=== PATIENT | female | born 1990 | race Caucasian/White ===

== ENCOUNTER 2021-10-28 00:52 | Emergency (ER) | payer OTHER ==
[2021-10-28] MEDS ORDERED: DIFLUCAN150 MG PO (02:20)
== END 2021-10-28 02:38 | disposition home or self-care (01) ==
LOC: FER 00:52
DX: B37.3 Candidiasis of vulva and vagina (principal); E11.9 Type 2 diabetes mellitus without complications; Z91.013 Allergy to seafood; Z91.19 Patient's noncompliance with other medical treatment and regimen
CPT/HCPCS: 99283